=== PATIENT | male | born 1945 | race African-American/Black ===

== ENCOUNTER 2018-01-03 15:38 | Inpatient (IN) ==
[2018-01-03] MEDS ORDERED: FUROSEMIDE 100 MG/10 ML VIAL IV STA (16:28)
[2018-01-03] MEDS ORDERED: ASPIRIN 325 MG TABLET PO STA (16:28)
[2018-01-03] MEDS ORDERED: ONDANSETRON 4 MG/2 ML VIAL IV STA (16:28)
[2018-01-03] MEDS ORDERED: MORPHINE 4 MG/1 ML VIAL IV STA (16:28)
[2018-01-03] MEDS ORDERED: ALBUTEROL NEB SOLN 5 MG/ML 20 ML/BOTTLE RESP TX SCH (16:30)
[2018-01-03 16:50] LABS: Basophils % 0.5 % (0.0-0.8); Immature Granulocytes % 0.2 %; Immature Granulocytes Absolute 0.01 #; Lymphocytes # 1.4 10*3/uL (1.4-4.0); Lymphocytes % 34.3 % (21.2-54.2); Mean Corpuscular HGB Conc 31.4 GM/DL (32-36); Mean Corpuscular Hemoglobin 28 PG (27-34); Mean Corpuscular Volume 90.4 FL (87-102); Mean Platelet Volume 11.9 FL (9.6-12.0); Monocytes # 0.4 10*3/uL (0.11-0.8); Monocytes % 8.3 % (1.7-12.7); Neutrophils # 2.3 10*3/uL (1.4-7.4); Neutrophils % 55.7 % (38.7-73.9); Platelet Count 154 T/CUMM (130-400); Red Blood Count 3.87 MC/CUMM (3.8-5.5); Red Cell Distribution Width 15.9 % (9.3-17.3); White Blood Count 4.2 T/CUMM (4-12)
[2018-01-03 16:58] LABS: INR 1.3; PT Patient Result 13.2 SECS
[2018-01-03 17:14] LABS: Albumin 3.7 G/DL (3.4-5.0); Bilirubin,Total 0.9 MG/DL (0.2-1.0); Calcium 8.4 MG/DL (8.5-10.1); Osmolality,Calculated 283.1 MOS/KG (273-304); Potassium 3.6 MMOL/L (3.5-5.1); Total Protein 7.6 G/DL (6.4-8.3)
[2018-01-03 17:29] LABS: Troponin I Only 5.57 NG/ML (0.00-0.045)
[2018-01-03] MEDS ORDERED: ENOXAPARIN 100 MG/ML SYRINGE SUBCUT STA (17:33)
[2018-01-03 19:12] LABS: CKMB % 12.6 %
[2018-01-03 19:15] LABS: Troponin I Only 5.57 NG/ML (0.00-0.045)
[2018-01-03] MEDS ORDERED: ONDANSETRON 4 MG/2 ML VIAL IV PRN (19:57)
[2018-01-03] MEDS ORDERED: MORPHINE 4 MG/1 ML VIAL IV PRN (19:57)
[2018-01-03] MEDS ORDERED: SODIUM CHLORIDE 0.9% 1,000 ML IV SCH (19:57)
[2018-01-03] MEDS ORDERED: MAGNESIUM SULF RIDER 4 GM in PREMIX 1 EACH IV PRN (19:57)
[2018-01-03] MEDS ORDERED: ALBUTEROL/IPRATROPIUM 3 ML NEB RESP TX PRN (19:57)
[2018-01-03] MEDS ORDERED: MAGNESIUM SULF RIDER 2 GM in PREMIX 1 EACH IV PRN (19:57)
[2018-01-03 20:44] LABS: CKMB % 12.7 %
[2018-01-03 20:45] LABS: Troponin I Only 7.37 NG/ML (0.00-0.045)
[2018-01-03] MEDS: NITROGLYCERIN 2% OINT 1 INCH/GM PACK TOP SCH (21:05)
[2018-01-04] MEDS: NITROGLYCERIN 2% OINT 1 INCH/GM PACK TOP SCH ×5 (02:48→20:13)
[2018-01-04 04:19] LABS: Basophils % 0.7 % (0.0-0.8); Eosinophils # 0.1 10*3/uL (0.0-0.87); Eosinophils % 1.4 % (0.00-10.9); Hematocrit 35.2 VOL% (42.0-52.0); Immature Granulocytes % 0.2 %; Immature Granulocytes Absolute 0.01 #; Lymphocytes # 1.8 10*3/uL (1.4-4.0); Mean Corpuscular HGB Conc 31.3 GM/DL (32-36); Mean Corpuscular Hemoglobin 29 PG (27-34); Mean Corpuscular Volume 91.2 FL (87-102); Mean Platelet Volume 12.6 FL (9.6-12.0); Monocytes # 0.3 10*3/uL (0.11-0.8); Monocytes % 7.7 % (1.7-12.7); Neutrophils # 2.2 10*3/uL (1.4-7.4); Platelet Count 144 T/CUMM (130-400); Red Blood Count 3.86 MC/CUMM (3.8-5.5); Red Cell Distribution Width 15.8 % (9.3-17.3); White Blood Count 4.4 T/CUMM (4-12)
[2018-01-04 05:01] LABS: Albumin 3.5 G/DL (3.4-5.0); Bilirubin,Total 0.8 MG/DL (0.2-1.0); Calcium 8.1 MG/DL (8.5-10.1); Potassium 3.4 MMOL/L (3.5-5.1); Risk Ratio 6.7; Total Protein 7.3 G/DL (6.4-8.3); VLDL CHOLESTEROL 17.4 MG/DL
[2018-01-04 05:03] LABS: CKMB % 11.7 %
[2018-01-04 05:07] LABS: Troponin I Only 10.5 NG/ML (0.00-0.045)
[2018-01-04] MEDS: POTASSIUM CHLORIDE 20 MEQ TABLET PO PRN ×2 (05:12→06:58)
[2018-01-04] MEDS: ENOXAPARIN 80 MG/0.8 ML SYRINGE SUBCUT SCH ×2 (06:58→17:29)
[2018-01-04] MEDS ORDERED: FUROSEMIDE 20 MG/2 ML VIAL IV SCH (08:00)
[2018-01-04] MEDS ORDERED: FUROSEMIDE 40 MG TABLET PO SCH (09:00)
[2018-01-04] MEDS: POTASSIUM CHLORIDE 20 MEQ TABLET PO SCH (09:43)
[2018-01-04] MEDS: LOSARTAN 25 MG TABLET PO SCH (09:44)
[2018-01-04] MEDS: ALLOPURINOL 100 MG TABLET PO SCH (09:44)
[2018-01-04] MEDS: ASPIRIN EC 81 MG TABLET PO SCH (09:44)
[2018-01-04] MEDS: METOPROLOL TARTRATE 25 MG TABLET PO SCH ×2 (09:44→20:07)
[2018-01-04] MEDS: COLCHICINE 0.6 MG TABLET PO SCH (09:44)
[2018-01-04] MEDS: PANTOPRAZOLE 40 MG TABLET PO SCH (09:44)
[2018-01-04] MEDS ORDERED: diphenhydrAMINE CAP 25 MG CAPSULE PO ONE (10:37)
[2018-01-04] MEDS ORDERED: DIAZEPAM 5 MG TABLET PO ONE (10:37)
[2018-01-04 12:41] LABS: CKMB % 9.6 %
[2018-01-04 12:42] LABS: Troponin I Only 10.8 NG/ML (0.00-0.045)
[2018-01-04] MEDS: FUROSEMIDE 20 MG/2 ML VIAL IV SCH (15:24)
[2018-01-04] MEDS: ATORVASTATIN 80 MG TABLET PO SCH (20:07)
[2018-01-05] MEDS: NITROGLYCERIN 2% OINT 1 INCH/GM PACK TOP SCH ×4 (02:00→21:30)
[2018-01-05 04:16] LABS: Eosinophils # 0.1 10*3/uL (0.0-0.87); Eosinophils % 2.5 % (0.00-10.9); Hematocrit 36.8 VOL% (42.0-52.0); Immature Granulocytes % 0.2 %; Immature Granulocytes Absolute 0.01 #; Lymphocytes # 1.7 10*3/uL (1.4-4.0); Mean Corpuscular HGB Conc 32.6 GM/DL (32-36); Mean Corpuscular Hemoglobin 29 PG (27-34); Mean Corpuscular Volume 87.6 FL (87-102); Monocytes # 0.4 10*3/uL (0.11-0.8); Monocytes % 9.2 % (1.7-12.7); Neutrophils # 1.9 10*3/uL (1.4-7.4); Neutrophils % 46.1 % (38.7-73.9); Platelet Count 171 T/CUMM (130-400); Red Cell Distribution Width 15.9 % (9.3-17.3)
[2018-01-05 04:52] LABS: Calcium 8.9 MG/DL (8.5-10.1); Osmolality,Calculated 285.3 MOS/KG (273-304); Potassium 3.8 MMOL/L (3.5-5.1)
[2018-01-05] MEDS ORDERED: DIAZEPAM 5 MG TABLET PO ONE (06:00)
[2018-01-05] MEDS ORDERED: diphenhydrAMINE CAP 25 MG CAPSULE PO ONE (06:00)
[2018-01-05] MEDS ORDERED: SODIUM CHLORIDE 0.9% 1,000 ML IV SCH (06:00)
[2018-01-05] MEDS: ENOXAPARIN 80 MG/0.8 ML SYRINGE SUBCUT SCH ×2 (06:32→18:41)
[2018-01-05] MEDS: FUROSEMIDE 20 MG/2 ML VIAL IV SCH ×2 (09:19→16:18)
[2018-01-05] MEDS: COLCHICINE 0.6 MG TABLET PO SCH (09:19)
[2018-01-05] MEDS: POTASSIUM CHLORIDE 20 MEQ TABLET PO SCH (09:19)
[2018-01-05] MEDS: ALLOPURINOL 100 MG TABLET PO SCH (09:20)
[2018-01-05] MEDS ORDERED: HEPARIN/NACL 0.9% 2 UNITS/ML 1,000 ML IV ONE (10:26)
[2018-01-05] MEDS: ASPIRIN EC 81 MG TABLET PO SCH (11:04)
[2018-01-05] MEDS: PANTOPRAZOLE 40 MG TABLET PO SCH (11:04)
[2018-01-05] MEDS: METOPROLOL TARTRATE 25 MG TABLET PO SCH ×2 (11:04→21:28)
[2018-01-05] MEDS: LOSARTAN 25 MG TABLET PO SCH (11:04)
[2018-01-05] MEDS ORDERED: fentaNYL 100 MCG/2 ML VIAL ONE (11:24)
[2018-01-05] MEDS ORDERED: MIDAZOLAM 2 MG/2 ML VIAL ONE (11:24)
[2018-01-05] MEDS: ATORVASTATIN 80 MG TABLET PO SCH (21:28)
[2018-01-06] MEDS: NITROGLYCERIN 2% OINT 1 INCH/GM PACK TOP SCH ×3 (02:28→16:26)
[2018-01-06 05:59] LABS: Basophils % 0.8 % (0.0-0.8); Eosinophils # 0.1 10*3/uL (0.0-0.87); Eosinophils % 1.6 % (0.00-10.9); Hematocrit 36.4 VOL% (42.0-52.0); Hemoglobin 11.3 GM/DL (14.0-18.0); Immature Granulocytes % 0.3 %; Immature Granulocytes Absolute 0.01 #; Lymphocytes # 1.5 10*3/uL (1.4-4.0); Lymphocytes % 41.3 % (21.2-54.2); Mean Corpuscular Hemoglobin 29 PG (27-34); Mean Corpuscular Volume 92.2 FL (87-102); Mean Platelet Volume 12.5 FL (9.6-12.0); Monocytes # 0.3 10*3/uL (0.11-0.8); Monocytes % 9.1 % (1.7-12.7); Neutrophils # 1.8 10*3/uL (1.4-7.4); Neutrophils % 46.9 % (38.7-73.9); Platelet Count 154 T/CUMM (130-400); Red Blood Count 3.95 MC/CUMM (3.8-5.5); Red Cell Distribution Width 15.7 % (9.3-17.3); White Blood Count 3.7 T/CUMM (4-12)
[2018-01-06 06:14] LABS: Calcium 8.6 MG/DL (8.5-10.1); Osmolality,Calculated 286.1 MOS/KG (273-304); Potassium 3.8 MMOL/L (3.5-5.1)
[2018-01-06] MEDS: ENOXAPARIN 80 MG/0.8 ML SYRINGE SUBCUT SCH (06:40)
[2018-01-06] MEDS: PANTOPRAZOLE 40 MG TABLET PO SCH (08:36)
[2018-01-06] MEDS: COLCHICINE 0.6 MG TABLET PO SCH (08:36)
[2018-01-06] MEDS: LOSARTAN 25 MG TABLET PO SCH (08:37)
[2018-01-06] MEDS: FUROSEMIDE 40 MG TABLET PO SCH ×2 (08:37→16:26)
[2018-01-06] MEDS: POTASSIUM CHLORIDE 20 MEQ TABLET PO SCH (08:37)
[2018-01-06] MEDS: ALLOPURINOL 100 MG TABLET PO SCH (08:37)
[2018-01-06] MEDS: ASPIRIN EC 81 MG TABLET PO SCH (08:37)
[2018-01-06] MEDS: METOPROLOL TARTRATE 25 MG TABLET PO SCH (08:37)
[2018-01-06 15:44] VITALS: BP 127/73
== END 2018-01-06 16:28 | disposition home or self-care (01) | DRG 280 ==
LOC: N.ED 15:38 → N.EDINP 17:37 → N.TELES 18:54
PROVIDERS: ADMIT Internal Medicine Interventional Cardiology; ATTEND Internal Medicine Interventional Cardiology

== ENCOUNTER 2018-03-27 16:03 | Observation (INO) ==
[2018-03-27 16:43] LABS: Basophils % 0.5 % (0.0-0.8); Eosinophils # 0.1 10*3/uL (0.0-0.87); Eosinophils % 1.2 % (0.00-10.9); Hematocrit 37.9 VOL% (42.0-52.0); Hemoglobin 12.3 GM/DL (14.0-18.0); Immature Granulocytes % 0.2 %; Immature Granulocytes Absolute 0.01 #; Lymphocytes # 1.6 10*3/uL (1.4-4.0); Lymphocytes % 38.6 % (21.2-54.2); Mean Corpuscular HGB Conc 32.5 GM/DL (32-36); Mean Corpuscular Hemoglobin 29 PG (27-34); Mean Platelet Volume 12.5 FL (9.6-12.0); Monocytes # 0.4 10*3/uL (0.11-0.8); Monocytes % 8.8 % (1.7-12.7); Neutrophils # 2.1 10*3/uL (1.4-7.4); Neutrophils % 50.7 % (38.7-73.9); Platelet Count 153 T/CUMM (130-400); Red Blood Count 4.21 MC/CUMM (3.8-5.5); Red Cell Distribution Width 16.8 % (9.3-17.3); White Blood Count 4.1 T/CUMM (4-12)
[2018-03-27 16:52] LABS: INR 1.2; PT Patient Result 12.9 SECS; Partial Thromboplastin Time 25.9 SECS (0-40)
[2018-03-27 17:05] LABS: Albumin 3.7 G/DL (3.4-5.0); Bilirubin,Total 1.2 MG/DL (0.2-1.0); Calcium 8.6 MG/DL (8.5-10.1); Osmolality,Calculated 286.8 MOS/KG (273-304); Potassium 3.8 MMOL/L (3.5-5.1); Total Protein 7.4 G/DL (6.4-8.3)
[2018-03-27] MEDS ORDERED: ENOXAPARIN 100 MG/ML SYRINGE SUBCUT STA (19:38)
[2018-03-27] MEDS ORDERED: ONDANSETRON 4 MG/2 ML VIAL IV PRN (23:06)
[2018-03-27] MEDS ORDERED: MAGNESIUM SULF RIDER 4 GM in PREMIX 1 EACH IV PRN (23:06)
[2018-03-27] MEDS ORDERED: MORPHINE 4 MG/1 ML VIAL IV PRN (23:06)
[2018-03-27] MEDS ORDERED: ALBUTEROL/IPRATROPIUM 3 ML NEB RESP TX PRN (23:06)
[2018-03-27] MEDS ORDERED: MAGNESIUM SULF RIDER 2 GM in PREMIX 1 EACH IV PRN (23:06)
[2018-03-27] MEDS ORDERED: SODIUM CHLORIDE 0.9% 1,000 ML IV SCH (23:06)
[2018-03-27] MEDS: CARVEDILOL 12.5 MG TABLET PO SCH (23:29)
[2018-03-27] MEDS: METOPROLOL TARTRATE 25 MG TABLET PO SCH (23:29)
[2018-03-27] MEDS: ATORVASTATIN 80 MG TABLET PO SCH (23:29)
[2018-03-28 00:17] LABS: Troponin I 0.052 NG/ML (0.00-0.045)
[2018-03-28 04:46] LABS: Basophils % 0.7 % (0.0-0.8); Eosinophils # 0.1 10*3/uL (0.0-0.87); Eosinophils % 1.6 % (0.00-10.9); Hematocrit 35.2 VOL% (42.0-52.0); Hemoglobin 11.4 GM/DL (14.0-18.0); Immature Granulocytes % 0.2 %; Immature Granulocytes Absolute 0.01 #; Lymphocytes # 1.9 10*3/uL (1.4-4.0); Lymphocytes % 44.9 % (21.2-54.2); Mean Corpuscular HGB Conc 32.4 GM/DL (32-36); Mean Corpuscular Hemoglobin 30 PG (27-34); Mean Corpuscular Volume 91.2 FL (87-102); Monocytes # 0.4 10*3/uL (0.11-0.8); Monocytes % 9.3 % (1.7-12.7); Neutrophils # 1.9 10*3/uL (1.4-7.4); Neutrophils % 43.3 % (38.7-73.9); Platelet Count 121 T/CUMM (130-400); Red Blood Count 3.86 MC/CUMM (3.8-5.5); Red Cell Distribution Width 16.7 % (9.3-17.3); White Blood Count 4.3 T/CUMM (4-12)
[2018-03-28 05:28] LABS: Albumin 3.2 G/DL (3.4-5.0); Bilirubin,Total 1.2 MG/DL (0.2-1.0); Calcium 8.4 MG/DL (8.5-10.1); Potassium 3.5 MMOL/L (3.5-5.1); Risk Ratio 7.57; Thyroid Stimulating Hormone 1.86 uIU/ml (0.358-3.74); VLDL CHOLESTEROL 18.6 MG/DL
[2018-03-28] MEDS ORDERED: FUROSEMIDE 40 MG TABLET PO SCH (08:00)
[2018-03-28 08:07] LABS: Troponin I 0.049 NG/ML (0.00-0.045)
[2018-03-28] MEDS ORDERED: CLOPIDOGREL 75 MG TABLET PO SCH (09:00)
[2018-03-28] MEDS ORDERED: LOSARTAN 25 MG TABLET PO SCH (09:00)
[2018-03-28] MEDS: FUROSEMIDE 40 MG/4 ML VIAL IV SCH ×2 (09:54→16:20)
[2018-03-28] MEDS: PANTOPRAZOLE 40 MG TABLET PO SCH (09:58)
[2018-03-28] MEDS: CARVEDILOL 12.5 MG TABLET PO SCH ×2 (09:58→20:18)
[2018-03-28] MEDS: METOPROLOL TARTRATE 25 MG TABLET PO SCH ×2 (09:58→20:18)
[2018-03-28] MEDS: COLCHICINE 0.6 MG TABLET PO SCH (09:58)
[2018-03-28] MEDS: LOSARTAN 25 MG TABLET PO SCH (10:01)
[2018-03-28] MEDS: POTASSIUM CHLORIDE 20 MEQ TABLET PO SCH (10:02)
[2018-03-28] MEDS: ALLOPURINOL 300 MG TABLET PO SCH (10:02)
[2018-03-28] MEDS: ENOXAPARIN 40 MG/0.4 ML SYRINGE SUBCUT SCH (10:02)
[2018-03-28] MEDS: CLOPIDOGREL 75 MG TABLET PO SCH (10:02)
[2018-03-28] MEDS: ASPIRIN EC 81 MG TABLET PO SCH (10:02)
[2018-03-28 15:35] LABS: Troponin I 0.044 NG/ML (0.00-0.045)
[2018-03-28] MEDS: ATORVASTATIN 80 MG TABLET PO SCH (20:19)
[2018-03-29 07:33] LABS: Basophils % 0.6 % (0.0-0.8); Eosinophils # 0.1 10*3/uL (0.0-0.87); Eosinophils % 1.7 % (0.00-10.9); Hemoglobin 11.9 GM/DL (14.0-18.0); Immature Granulocytes % 0.3 %; Immature Granulocytes Absolute 0.01 #; Lymphocytes # 1.1 10*3/uL (1.4-4.0); Lymphocytes % 30.6 % (21.2-54.2); Mean Corpuscular HGB Conc 32.2 GM/DL (32-36); Mean Corpuscular Hemoglobin 29 PG (27-34); Mean Corpuscular Volume 89.8 FL (87-102); Mean Platelet Volume 11.8 FL (9.6-12.0); Monocytes # 0.3 10*3/uL (0.11-0.8); Monocytes % 9.3 % (1.7-12.7); Neutrophils # 2.1 10*3/uL (1.4-7.4); Neutrophils % 57.5 % (38.7-73.9); Platelet Count 120 T/CUMM (130-400); Red Blood Count 4.12 MC/CUMM (3.8-5.5); Red Cell Distribution Width 16.6 % (9.3-17.3); White Blood Count 3.6 T/CUMM (4-12)
[2018-03-29 07:57] LABS: Calcium 8.4 MG/DL (8.5-10.1); Osmolality,Calculated 283.3 MOS/KG (273-304); Potassium 3.3 MMOL/L (3.5-5.1)
[2018-03-29] MEDS: CARVEDILOL 12.5 MG TABLET PO SCH ×2 (08:40→21:43)
[2018-03-29] MEDS: PANTOPRAZOLE 40 MG TABLET PO SCH (08:40)
[2018-03-29] MEDS: ASPIRIN EC 81 MG TABLET PO SCH (08:40)
[2018-03-29] MEDS: ENOXAPARIN 40 MG/0.4 ML SYRINGE SUBCUT SCH (08:40)
[2018-03-29] MEDS: POTASSIUM CHLORIDE 20 MEQ TABLET PO SCH (08:40)
[2018-03-29] MEDS: METOPROLOL TARTRATE 25 MG TABLET PO SCH ×2 (08:40→21:43)
[2018-03-29] MEDS: LOSARTAN 25 MG TABLET PO SCH (08:40)
[2018-03-29] MEDS: COLCHICINE 0.6 MG TABLET PO SCH (08:40)
[2018-03-29] MEDS: ALLOPURINOL 300 MG TABLET PO SCH (08:40)
[2018-03-29] MEDS: CLOPIDOGREL 75 MG TABLET PO SCH (08:40)
[2018-03-29] MEDS: FUROSEMIDE 40 MG/4 ML VIAL IV SCH ×2 (08:42→16:46)
[2018-03-29] MEDS: POTASSIUM CHLORIDE 20 MEQ TABLET PO PRN ×3 (16:46→23:50)
[2018-03-29] MEDS: ATORVASTATIN 80 MG TABLET PO SCH (21:43)
[2018-03-30 04:07] LABS: Basophils % 0.6 % (0.0-0.8); Eosinophils # 0.1 10*3/uL (0.0-0.87); Eosinophils % 2.6 % (0.00-10.9); Hematocrit 39.3 VOL% (42.0-52.0); Lymphocytes % 29.9 % (21.2-54.2); Mean Corpuscular HGB Conc 33.1 GM/DL (32-36); Mean Corpuscular Hemoglobin 29 PG (27-34); Mean Corpuscular Volume 87.5 FL (87-102); Mean Platelet Volume 11.8 FL (9.6-12.0); Monocytes # 0.3 10*3/uL (0.11-0.8); Monocytes % 9.3 % (1.7-12.7); Neutrophils % 57.6 % (38.7-73.9); Platelet Count 140 T/CUMM (130-400); Red Blood Count 4.49 MC/CUMM (3.8-5.5); Red Cell Distribution Width 16.6 % (9.3-17.3); White Blood Count 3.4 T/CUMM (4-12)
[2018-03-30 04:21] LABS: Calcium 8.7 MG/DL (8.5-10.1); Osmolality,Calculated 285.3 MOS/KG (273-304)
[2018-03-30] MEDS: PANTOPRAZOLE 40 MG TABLET PO SCH (08:45)
[2018-03-30] MEDS: COLCHICINE 0.6 MG TABLET PO SCH (08:45)
[2018-03-30] MEDS: METOPROLOL TARTRATE 25 MG TABLET PO SCH (08:45)
[2018-03-30] MEDS: ALLOPURINOL 300 MG TABLET PO SCH (08:46)
[2018-03-30] MEDS: ENOXAPARIN 40 MG/0.4 ML SYRINGE SUBCUT SCH (08:47)
[2018-03-30] MEDS: ASPIRIN EC 81 MG TABLET PO SCH (08:47)
[2018-03-30] MEDS: CLOPIDOGREL 75 MG TABLET PO SCH (08:47)
[2018-03-30] MEDS: CARVEDILOL 12.5 MG TABLET PO SCH (08:47)
[2018-03-30] MEDS: POTASSIUM CHLORIDE 20 MEQ TABLET PO SCH (08:47)
[2018-03-30] MEDS: LOSARTAN 25 MG TABLET PO SCH (08:47)
[2018-03-30] MEDS: FUROSEMIDE 40 MG/4 ML VIAL IV SCH ×2 (08:48→17:22)
[2018-03-30 16:41] VITALS: BP 108/60
== END 2018-03-30 19:36 | disposition home or self-care (01) ==
LOC: N.EDINP 16:03 → N.ED 16:03 → N.ICU 22:02 → N.TELEN 03-29 14:06
PROVIDERS: ADMIT Internal Medicine Cardiovascular Disease; ATTEND Internal Medicine Cardiovascular Disease

== ENCOUNTER 2020-02-04 13:54 | Observation (INO) ==
[2020-02-04 16:37] LABS: Basophils % 0.9 % (0.0-0.8); Eosinophils # 0.1 10*3/uL (0.0-0.87); Eosinophils % 1.3 % (0.00-10.9); Hemoglobin 12.4 GM/DL (14.0-18.0); Immature Granulocytes % 0.2 %; Immature Granulocytes Absolute 0.01 #; Lymphocytes # 1.8 10*3/uL (1.4-4.0); Lymphocytes % 39.2 % (21.2-54.2); Mean Corpuscular Volume 95.7 FL (87-102); Mean Platelet Volume 12.2 FL (9.6-12.0); Monocytes % 7.2 % (1.7-12.7); Neutrophils % 51.2 % (38.7-73.9); Platelet Count 170 T/CUMM (130-400); Red Blood Count 4.18 MC/CUMM (3.8-5.5); Red Cell Distribution Width 15.2 % (9.3-17.3); White Blood Count 4.6 T/CUMM (4-12)
[2020-02-04 16:58] LABS: Bilirubin,Total 1.2 MG/DL (0.2-1.0); Calcium 8.8 MG/DL (8.5-10.1); Osmolality,Calculated 281.3 MOS/KG (273-304); Total Protein 7.9 G/DL (6.4-8.3)
[2020-02-04] MEDS ORDERED: ACETAMINOPHEN 325 MG TABLET PO PRN (18:12)
[2020-02-04] MEDS ORDERED: GLUCAGON 1 MG VIAL IM PRN (18:12)
[2020-02-04] MEDS ORDERED: ONDANSETRON 4 MG/2 ML VIAL IV PRN (18:12)
[2020-02-04] MEDS ORDERED: DEXTROSE 50% 25 GM/50 ML VIAL IV PRN (18:12)
[2020-02-04] MEDS ORDERED: FUROSEMIDE 40 MG/4 ML VIAL IV STA (18:29)
[2020-02-04] MEDS ORDERED: ENOXAPARIN 40 MG/0.4 ML SYRINGE SUBCUT SCH (21:00)
[2020-02-04] MEDS ORDERED: ALBUTEROL/IPRATROPIUM 3 ML NEB RESP TX PRN (21:17)
[2020-02-04] MEDS ORDERED: ATORVASTATIN 80 MG TABLET PO SCH (22:00)
[2020-02-04] MEDS: COLCHICINE 0.6 MG CAPSULE PO SCH (23:11)
[2020-02-05 04:11] LABS: Bacteria,Urine Occasional /HPF (Few); Bilirubin,Urine Negative (Negative); Blood, Urine Negative (Negative); Glucose,Urine (UA) Negative (Negative); Hyaline Casts,Urine 3 /LPF (0-3); Ketones,Urine Negative (Negative); Mucus,Urine Occasional /LPF (Occasional); Nitrite,Urine Negative (Negative); Protein,Urine Negative; RBC,Urine 2 /HPF (0-4); Urine Appearance CLEAR (Clear); Urine Color Yellow (Yellow); Urine Specific Gravity 1.008 (1.001-1.035); WBC,Urine <1 /HPF (0-6)
[2020-02-05 05:35] LABS: Basophils % 0.3 % (0.0-0.8); Eosinophils # 0.1 10*3/uL (0.0-0.87); Eosinophils % 2.1 % (0.00-10.9); Hematocrit 36.9 VOL% (42.0-52.0); Hemoglobin 11.7 GM/DL (14.0-18.0); Immature Granulocytes % 0.3 %; Immature Granulocytes Absolute 0.01 #; Lymphocytes # 1.8 10*3/uL (1.4-4.0); Lymphocytes % 46.3 % (21.2-54.2); Mean Corpuscular HGB Conc 31.7 GM/DL (32-36); Mean Corpuscular Volume 91.8 FL (87-102); Mean Platelet Volume 12.2 FL (9.6-12.0); Monocytes % 7.9 % (1.7-12.7); Neutrophils % 43.1 % (38.7-73.9); Platelet Count 146 T/CUMM (130-400); Red Blood Count 4.02 MC/CUMM (3.8-5.5); Red Cell Distribution Width 15.1 % (9.3-17.3); White Blood Count 3.8 T/CUMM (4-12)
[2020-02-05 06:07] LABS: Calcium 8.5 MG/DL (8.5-10.1); Osmolality,Calculated 283.3 MOS/KG (273-304)
[2020-02-05 06:14] LABS: Risk Ratio 6.17
[2020-02-05] MEDS ORDERED: FUROSEMIDE 40 MG/4 ML VIAL IV SCH (08:00)
[2020-02-05] MEDS: POTASSIUM CHLORIDE 20 MEQ TABLET PO PRN ×3 (08:33→12:42)
[2020-02-05] MEDS ORDERED: carvediloL 12.5 MG TABLET PO SCH (09:00)
[2020-02-05] MEDS ORDERED: PANTOPRAZOLE 40 MG TABLET PO SCH (09:00)
[2020-02-05] MEDS ORDERED: ASPIRIN EC 81 MG TABLET PO SCH (09:00)
[2020-02-05] MEDS ORDERED: predniSONE 20 MG TABLET PO SCH (09:00)
[2020-02-05] MEDS ORDERED: LOSARTAN 50 MG TABLET PO SCH (09:00)
[2020-02-05] MEDS: COLCHICINE 0.6 MG CAPSULE PO SCH (09:02)
[2020-02-05 14:32] VITALS: BP 133/71
== END 2020-02-05 15:05 | disposition home or self-care (01) ==
LOC: N.EDINP 13:54 → N.ED 13:54 → N.TELES 21:49
PROVIDERS: ADMIT Internal Medicine Geriatric Medicine; ATTEND Internal Medicine Geriatric Medicine

== ENCOUNTER 2020-03-29 18:50 | Observation (INO) ==
[2020-03-29 19:12] LABS: Basophils % 0.8 % (0.0-0.8); Eosinophils # 0.1 10*3/uL (0.0-0.87); Eosinophils % 1.8 % (0.00-10.9); Hematocrit 38.5 VOL% (42.0-52.0); Hemoglobin 12.4 GM/DL (14.0-18.0); Immature Granulocytes % 0.3 %; Immature Granulocytes Absolute 0.01 #; Lymphocytes # 1.9 10*3/uL (1.4-4.0); Lymphocytes % 48.3 % (21.2-54.2); Mean Corpuscular HGB Conc 32.2 GM/DL (32-36); Mean Corpuscular Volume 92.3 FL (87-102); Mean Platelet Volume 12.5 FL (9.6-12.0); Monocytes % 8.4 % (1.7-12.7); Neutrophils % 40.4 % (38.7-73.9); Platelet Count 128 T/CUMM (130-400); Red Blood Count 4.17 MC/CUMM (3.8-5.5); Red Cell Distribution Width 15.5 % (9.3-17.3); White Blood Count 3.9 T/CUMM (4-12)
[2020-03-29 19:34] LABS: Albumin 3.7 G/DL (3.4-5.0); Calcium 8.8 MG/DL (8.5-10.1); Osmolality,Calculated 283.3 MOS/KG (273-304); Total Protein 7.8 G/DL (6.4-8.3)
[2020-03-29 19:40] LABS: INR 1.3; PT Patient Result 13.3 SECS (9.8-11.9); Partial Thromboplastin Time 27.4 SECS (23.9-33.8)
[2020-03-29] MEDS ORDERED: FUROSEMIDE 40 MG/4 ML VIAL IV STA (22:27)
[2020-03-29] MEDS ORDERED: ASPIRIN 325 MG TABLET PO STA (22:27)
[2020-03-30] MEDS ORDERED: DOCUSATE SODIUM 100 MG CAPSULE PO PRN (01:21)
[2020-03-30] MEDS ORDERED: ALUMINUM/MAGNES/SIMETH MAX STR 30 ML UDCUP PO PRN (01:21)
[2020-03-30] MEDS ORDERED: ONDANSETRON 4 MG/2 ML VIAL IV PRN (01:21)
[2020-03-30] MEDS ORDERED: ACETAMINOPHEN 325 MG TABLET PO PRN (01:21)
[2020-03-30] MEDS: COLCHICINE 0.6 MG CAPSULE PO SCH ×3 (04:59→20:38)
[2020-03-30] MEDS: POTASSIUM CHLORIDE 20 MEQ TABLET PO PRN ×3 (05:00→20:39)
[2020-03-30 05:49] LABS: Basophils % 0.8 % (0.0-0.8); Eosinophils # 0.1 10*3/uL (0.0-0.87); Eosinophils % 1.6 % (0.00-10.9); Hematocrit 40.7 VOL% (42.0-52.0); Hemoglobin 12.6 GM/DL (14.0-18.0); Immature Granulocytes % 0.2 %; Immature Granulocytes Absolute 0.01 #; Lymphocytes # 2.2 10*3/uL (1.4-4.0); Lymphocytes % 42.5 % (21.2-54.2); Mean Corpuscular Volume 95.5 FL (87-102); Mean Platelet Volume 13.4 FL (9.6-12.0); Monocytes % 7.3 % (1.7-12.7); Neutrophils % 47.6 % (38.7-73.9); Platelet Count 151 T/CUMM (130-400); Red Blood Count 4.26 MC/CUMM (3.8-5.5); Red Cell Distribution Width 15.5 % (9.3-17.3); White Blood Count 5.1 T/CUMM (4-12)
[2020-03-30 06:09] LABS: Osmolality,Calculated 285.3 MOS/KG (273-304)
[2020-03-30] MEDS ORDERED: POTASSIUM CHLORIDE 20 MEQ TABLET PO ONE (06:46)
[2020-03-30 07:01] LABS: Anisocytosis 2+; Platelet Estimate Normal
[2020-03-30] MEDS ORDERED: LOSARTAN 50 MG TABLET PO SCH (09:00)
[2020-03-30] MEDS ORDERED: LOSARTAN 25 MG TABLET PO ONE (09:02)
[2020-03-30] MEDS: POTASSIUM CHLORIDE 20 MEQ TABLET PO SCH (09:23)
[2020-03-30] MEDS: SPIRONOLACTONE 25 MG TABLET PO SCH (09:23)
[2020-03-30] MEDS: FUROSEMIDE 40 MG/4 ML VIAL IV SCH ×2 (09:23→16:53)
[2020-03-30] MEDS: carvediloL 12.5 MG TABLET PO SCH ×2 (09:23→16:54)
[2020-03-30] MEDS: ASPIRIN EC 81 MG TABLET PO SCH (09:23)
[2020-03-30] MEDS: ENOXAPARIN 40 MG/0.4 ML SYRINGE SUBCUT SCH (09:24)
[2020-03-30] MEDS: EZETIMIBE 10 MG TABLET PO SCH (20:38)
[2020-03-30] MEDS: LOSARTAN 50 MG TABLET PO SCH (20:39)
[2020-03-30] MEDS: ATORVASTATIN 80 MG TABLET PO SCH (20:39)
[2020-03-31 05:48] LABS: Basophils % 0.8 % (0.0-0.8); Eosinophils # 0.1 10*3/uL (0.0-0.87); Eosinophils % 2.6 % (0.00-10.9); Hematocrit 38.8 VOL% (42.0-52.0); Hemoglobin 12.2 GM/DL (14.0-18.0); Lymphocytes # 1.9 10*3/uL (1.4-4.0); Lymphocytes % 49.6 % (21.2-54.2); Mean Corpuscular HGB Conc 31.4 GM/DL (32-36); Mean Corpuscular Volume 93.9 FL (87-102); Mean Platelet Volume 12.8 FL (9.6-12.0); Platelet Count 128 T/CUMM (130-400); Red Blood Count 4.13 MC/CUMM (3.8-5.5); Red Cell Distribution Width 15.4 % (9.3-17.3); White Blood Count 3.9 T/CUMM (4-12)
[2020-03-31 06:19] LABS: Band Neutrophils 3 % (0-10); Calcium 8.8 MG/DL (8.5-10.1); Eosinophils 1 % (0-10); Lymphocytes 60 % (20-55); Osmolality,Calculated 282.3 MOS/KG (273-304); Segmented Neutrophils 31 % (50-85); Total Cells Counted 100
[2020-03-31 06:20] LABS: Anisocytosis 2+; Macrocytosis Slight; Poikilocytosis Slight
[2020-03-31] MEDS: POTASSIUM CHLORIDE 20 MEQ TABLET PO PRN (07:56)
[2020-03-31] MEDS ORDERED: POTASSIUM CHLORIDE 20 MEQ TABLET PO ONE (08:11)
[2020-03-31] MEDS ORDERED: LOSARTAN 25 MG TABLET PO SCH (09:00)
[2020-03-31] MEDS: COLCHICINE 0.6 MG CAPSULE PO SCH ×2 (09:55→20:32)
[2020-03-31] MEDS: carvediloL 12.5 MG TABLET PO SCH ×2 (09:56→16:54)
[2020-03-31] MEDS: LOSARTAN 50 MG TABLET PO SCH ×2 (09:56→20:32)
[2020-03-31] MEDS: ASPIRIN EC 81 MG TABLET PO SCH (09:56)
[2020-03-31] MEDS: POTASSIUM CHLORIDE 20 MEQ TABLET PO SCH (09:57)
[2020-03-31] MEDS: ENOXAPARIN 40 MG/0.4 ML SYRINGE SUBCUT SCH (09:57)
[2020-03-31] MEDS: SPIRONOLACTONE 25 MG TABLET PO SCH (09:57)
[2020-03-31] MEDS: FUROSEMIDE 40 MG/4 ML VIAL IV SCH ×2 (09:57→16:54)
[2020-03-31] MEDS: ATORVASTATIN 80 MG TABLET PO SCH (20:32)
[2020-03-31] MEDS: EZETIMIBE 10 MG TABLET PO SCH (20:32)
[2020-04-01 05:56] LABS: Basophils % 0.6 % (0.0-0.8); Eosinophils # 0.1 10*3/uL (0.0-0.87); Eosinophils % 1.5 % (0.00-10.9); Hematocrit 42.7 VOL% (42.0-52.0); Hemoglobin 13.6 GM/DL (14.0-18.0); Immature Granulocytes % 0.4 %; Immature Granulocytes Absolute 0.02 #; Lymphocytes # 0.9 10*3/uL (1.4-4.0); Lymphocytes % 16.3 % (21.2-54.2); Mean Corpuscular HGB Conc 31.9 GM/DL (32-36); Mean Corpuscular Volume 93.6 FL (87-102); Mean Platelet Volume 12.9 FL (9.6-12.0); Monocytes % 8.8 % (1.7-12.7); Neutrophils % 72.4 % (38.7-73.9); Platelet Count 134 T/CUMM (130-400); Red Blood Count 4.56 MC/CUMM (3.8-5.5); Red Cell Distribution Width 15.7 % (9.3-17.3); White Blood Count 5.3 T/CUMM (4-12)
[2020-04-01 06:20] LABS: Calcium 9.3 MG/DL (8.5-10.1)
[2020-04-01] MEDS: ENOXAPARIN 40 MG/0.4 ML SYRINGE SUBCUT SCH (09:39)
[2020-04-01] MEDS: carvediloL 12.5 MG TABLET PO SCH ×2 (09:40→18:18)
[2020-04-01] MEDS: COLCHICINE 0.6 MG CAPSULE PO SCH ×2 (09:40→22:28)
[2020-04-01] MEDS: ASPIRIN EC 81 MG TABLET PO SCH (09:40)
[2020-04-01] MEDS: FUROSEMIDE 40 MG/4 ML VIAL IV SCH ×2 (09:40→17:51)
[2020-04-01] MEDS: MULTIVITAMIN (CENTRUM) TABLET PO SCH (09:40)
[2020-04-01] MEDS: SPIRONOLACTONE 25 MG TABLET PO SCH (09:42)
[2020-04-01] MEDS: POTASSIUM CHLORIDE 20 MEQ TABLET PO SCH (09:42)
[2020-04-01] MEDS: LOSARTAN 50 MG TABLET PO SCH ×2 (09:42→22:29)
[2020-04-01] MEDS: ATORVASTATIN 80 MG TABLET PO SCH (22:28)
[2020-04-01] MEDS: EZETIMIBE 10 MG TABLET PO SCH (22:29)
[2020-04-02 05:13] LABS: Basophils % 1.1 % (0.0-0.8); Eosinophils # 0.1 10*3/uL (0.0-0.87); Hematocrit 39.9 VOL% (42.0-52.0); Hemoglobin 12.7 GM/DL (14.0-18.0); Lymphocytes % 54.8 % (21.2-54.2); Mean Corpuscular HGB Conc 31.8 GM/DL (32-36); Mean Corpuscular Volume 92.4 FL (87-102); Mean Platelet Volume 12.7 FL (9.6-12.0); Monocytes % 6.8 % (1.7-12.7); Neutrophils % 34.3 % (38.7-73.9); Platelet Count 141 T/CUMM (130-400); Red Blood Count 4.32 MC/CUMM (3.8-5.5); Red Cell Distribution Width 15.5 % (9.3-17.3); White Blood Count 3.7 T/CUMM (4-12)
[2020-04-02 05:39] LABS: Eosinophils 2 % (0-10); Hypochromasia 1+; Lymphocytes 59 % (20-55); Microcytosis 1+; Ovalocytes Slight; Platelet Estimate Adequate; Segmented Neutrophils 33 % (50-85); Total Cells Counted 100
[2020-04-02 05:40] LABS: Atypical Lymphocytes Few
[2020-04-02 05:51] LABS: Calcium 8.6 MG/DL (8.5-10.1); Osmolality,Calculated 278.8 MOS/KG (273-304)
[2020-04-02] MEDS: ENOXAPARIN 40 MG/0.4 ML SYRINGE SUBCUT SCH (09:56)
[2020-04-02] MEDS: MULTIVITAMIN (CENTRUM) TABLET PO SCH (09:57)
[2020-04-02] MEDS: ASPIRIN EC 81 MG TABLET PO SCH (09:57)
[2020-04-02] MEDS: POTASSIUM CHLORIDE 20 MEQ TABLET PO SCH (09:57)
[2020-04-02] MEDS: carvediloL 12.5 MG TABLET PO SCH ×2 (09:57→19:18)
[2020-04-02] MEDS: SPIRONOLACTONE 25 MG TABLET PO SCH (09:57)
[2020-04-02] MEDS: LOSARTAN 50 MG TABLET PO SCH ×2 (09:57→20:34)
[2020-04-02] MEDS: COLCHICINE 0.6 MG CAPSULE PO SCH ×2 (09:57→20:34)
[2020-04-02] MEDS: FUROSEMIDE 40 MG TABLET PO SCH (15:36)
[2020-04-02] MEDS: FUROSEMIDE 40 MG/4 ML VIAL IV SCH (15:38)
[2020-04-02] MEDS: EZETIMIBE 10 MG TABLET PO SCH (20:34)
[2020-04-02] MEDS: ATORVASTATIN 80 MG TABLET PO SCH (20:34)
[2020-04-03 07:23] LABS: Basophils % 0.8 % (0.0-0.8); Eosinophils # 0.1 10*3/uL (0.0-0.87); Eosinophils % 2.6 % (0.00-10.9); Hematocrit 40.8 VOL% (42.0-52.0); Hemoglobin 13.1 GM/DL (14.0-18.0); Immature Granulocytes % 0.3 %; Immature Granulocytes Absolute 0.01 #; Lymphocytes # 1.8 10*3/uL (1.4-4.0); Lymphocytes % 46.8 % (21.2-54.2); Mean Corpuscular HGB Conc 32.1 GM/DL (32-36); Mean Corpuscular Volume 93.2 FL (87-102); Mean Platelet Volume 12.5 FL (9.6-12.0); Monocytes % 7.3 % (1.7-12.7); Neutrophils % 42.2 % (38.7-73.9); Platelet Count 138 T/CUMM (130-400); Red Blood Count 4.38 MC/CUMM (3.8-5.5); Red Cell Distribution Width 15.4 % (9.3-17.3); White Blood Count 3.9 T/CUMM (4-12)
[2020-04-03 07:48] LABS: Calcium 9.1 MG/DL (8.5-10.1); Osmolality,Calculated 279.7 MOS/KG (273-304)
[2020-04-03] MEDS: COLCHICINE 0.6 MG CAPSULE PO SCH (09:23)
[2020-04-03] MEDS: ASPIRIN EC 81 MG TABLET PO SCH (09:23)
[2020-04-03] MEDS: FUROSEMIDE 40 MG TABLET PO SCH (09:23)
[2020-04-03] MEDS: LOSARTAN 50 MG TABLET PO SCH (09:23)
[2020-04-03] MEDS: MULTIVITAMIN (CENTRUM) TABLET PO SCH (09:23)
[2020-04-03] MEDS: carvediloL 12.5 MG TABLET PO SCH (09:24)
[2020-04-03] MEDS: POTASSIUM CHLORIDE 20 MEQ TABLET PO SCH (09:24)
[2020-04-03] MEDS: SPIRONOLACTONE 25 MG TABLET PO SCH (09:24)
[2020-04-03] MEDS: ENOXAPARIN 40 MG/0.4 ML SYRINGE SUBCUT SCH (09:24)
[2020-04-03 12:09] VITALS: BP 114/55
== END 2020-04-03 13:30 | disposition home or self-care (01) ==
LOC: N.EDINP 18:50 → N.ED 18:50 → SUATTDRO 03-30 00:55 → N.TELES 03-30 03:33
PROVIDERS: ADMIT Internal Medicine; ATTEND Internal Medicine

== ENCOUNTER 2020-09-24 21:38 | Observation (INO) ==
[2020-09-24] MEDS ORDERED: FUROSEMIDE 100 MG/10 ML VIAL IV STA (23:01)
[2020-09-24 23:28] LABS: Basophils % 0.6 % (0.0-0.8); Eosinophils % 1.1 % (0.00-10.9); Hematocrit 37.4 VOL% (42.0-52.0); Hemoglobin 11.8 GM/DL (14.0-18.0); Lymphocytes # 1.2 10*3/uL (1.4-4.0); Lymphocytes % 34.5 % (21.2-54.2); Mean Corpuscular HGB Conc 31.6 GM/DL (32-36); Mean Corpuscular Volume 94.7 FL (87-102); Mean Platelet Volume 12.1 FL (9.6-12.0); Monocytes % 10.6 % (1.7-12.7); Neutrophils % 53.2 % (38.7-73.9); Platelet Count 127 T/CUMM (130-400); Red Blood Count 3.95 MC/CUMM (3.8-5.5); Red Cell Distribution Width 14.1 % (9.3-17.3); White Blood Count 3.6 T/CUMM (4-12)
[2020-09-24 23:54] LABS: Albumin 3.4 G/DL (3.4-5.0); Bilirubin,Total 0.6 MG/DL (0.2-1.0); Calcium 8.3 MG/DL (8.5-10.1); Osmolality,Calculated 278.5 MOS/KG (273-304); Potassium 3.9 MMOL/L (3.5-5.1); Total Protein 7.2 G/DL (6.4-8.2)
[2020-09-25 00:40] LABS: INR 1.2; PT Patient Result 12.6 SECS (9.8-11.9)
[2020-09-25] MEDS ORDERED: DEXTROSE 50% 25 GM/50 ML VIAL IV PRN (02:04)
[2020-09-25] MEDS ORDERED: GLUCAGON 1 MG VIAL IM PRN (02:04)
[2020-09-25] MEDS ORDERED: BISACODYL 5 MG TABLET PO PRN (02:04)
[2020-09-25] MEDS ORDERED: MAGNESIUM SULF RIDER 2 GM in PREMIX 1 EACH IV PRN (02:04)
[2020-09-25] MEDS ORDERED: MAGNESIUM SULF RIDER 4 GM in PREMIX 1 EACH IV PRN (02:04)
[2020-09-25] MEDS ORDERED: DOCUSATE SODIUM 100 MG CAPSULE PO PRN (02:04)
[2020-09-25] MEDS ORDERED: ALUMINUM/MAGNES/SIMETH MAX STR 30 ML UDCUP PO PRN (02:04)
[2020-09-25] MEDS ORDERED: ONDANSETRON 4 MG/2 ML VIAL IV PRN (02:04)
[2020-09-25] MEDS ORDERED: CALCIUM CARBONATE CHEW 500 MG TABLET PO PRN (02:04)
[2020-09-25] MEDS ORDERED: ACETAMINOPHEN 325 MG TABLET PO PRN (02:04)
[2020-09-25] MEDS ORDERED: SIMETHICONE CHEW 125 MG TABLET PO PRN (02:04)
[2020-09-25] MEDS ORDERED: ZALEPLON 5 MG CAPSULE PO PRN (02:04)
[2020-09-25] MEDS ORDERED: IBUPROFEN 200 MG TABLET PO PRN (02:28)
[2020-09-25] MEDS ORDERED: COLCHICINE 0.6 MG CAPSULE PO PRN (02:30)
[2020-09-25 08:23] LABS: Basophils % 0.6 % (0.0-0.8); Eosinophils % 1.2 % (0.00-10.9); Hemoglobin 12.4 GM/DL (14.0-18.0); Lymphocytes # 1.3 10*3/uL (1.4-4.0); Lymphocytes % 39.3 % (21.2-54.2); Mean Corpuscular HGB Conc 31.8 GM/DL (32-36); Mean Corpuscular Volume 94.2 FL (87-102); Monocytes % 11.8 % (1.7-12.7); Neutrophils % 47.1 % (38.7-73.9); Platelet Count 136 T/CUMM (130-400); Red Blood Count 4.14 MC/CUMM (3.8-5.5); Red Cell Distribution Width 14.1 % (9.3-17.3); White Blood Count 3.2 T/CUMM (4-12)
[2020-09-25 08:49] LABS: Albumin 3.4 G/DL (3.4-5.0); Bilirubin,Total 0.6 MG/DL (0.2-1.0); Calcium 8.4 MG/DL (8.5-10.1); Osmolality,Calculated 278.5 MOS/KG (273-304); Potassium 3.4 MMOL/L (3.5-5.1)
[2020-09-25] MEDS: LOSARTAN 50 MG TABLET PO SCH ×2 (08:49→21:28)
[2020-09-25] MEDS: FUROSEMIDE 40 MG/4 ML VIAL IV SCH ×2 (08:49→16:17)
[2020-09-25] MEDS: POTASSIUM CHLORIDE 20 MEQ TABLET PO SCH (08:49)
[2020-09-25] MEDS: PANTOPRAZOLE 40 MG TABLET PO SCH (08:49)
[2020-09-25] MEDS: carvediloL 25 MG TABLET PO SCH ×2 (08:49→21:28)
[2020-09-25] MEDS: ASPIRIN EC 81 MG TABLET PO SCH (08:49)
[2020-09-25] MEDS ORDERED: POTASSIUM CHLORIDE 20 MEQ TABLET PO ONE (09:28)
[2020-09-25] MEDS: SPIRONOLACTONE 25 MG TABLET PO SCH (09:41)
[2020-09-25] MEDS ORDERED: ENOXAPARIN 40 MG/0.4 ML SYRINGE SUBCUT SCH (21:00)
[2020-09-25] MEDS ORDERED: ATORVASTATIN 80 MG TABLET PO SCH (21:00)
[2020-09-26 05:41] LABS: Basophils % 0.9 % (0.0-0.8); Eosinophils # 0.1 10*3/uL (0.0-0.87); Eosinophils % 1.9 % (0.00-10.9); Hematocrit 39.7 VOL% (42.0-52.0); Hemoglobin 12.6 GM/DL (14.0-18.0); Immature Granulocytes % 0.3 %; Immature Granulocytes Absolute 0.01 #; Lymphocytes # 1.5 10*3/uL (1.4-4.0); Lymphocytes % 45.8 % (21.2-54.2); Mean Corpuscular HGB Conc 31.7 GM/DL (32-36); Mean Corpuscular Volume 95.2 FL (87-102); Mean Platelet Volume 11.8 FL (9.6-12.0); Monocytes % 13.1 % (1.7-12.7); Platelet Count 133 T/CUMM (130-400); Red Blood Count 4.17 MC/CUMM (3.8-5.5); Red Cell Distribution Width 13.9 % (9.3-17.3); White Blood Count 3.2 T/CUMM (4-12)
[2020-09-26 05:46] LABS: Osmolality,Calculated 279.5 MOS/KG (273-304); Potassium 3.8 MMOL/L (3.5-5.1)
[2020-09-26 06:05] LABS: Band Neutrophils 3 % (0-10); Eosinophils 2 % (0-10); Hypochromasia 1+; Lymphocytes 45 % (20-55); Segmented Neutrophils 40 % (50-85); Total Cells Counted 100
[2020-09-26 06:06] LABS: Microcytosis 1+; Ovalocytes Few; Platelet Estimate Adequate
[2020-09-26] MEDS: FUROSEMIDE 40 MG/4 ML VIAL IV SCH (08:15)
[2020-09-26] MEDS: SPIRONOLACTONE 25 MG TABLET PO SCH (08:15)
[2020-09-26] MEDS: POTASSIUM CHLORIDE 20 MEQ TABLET PO SCH (08:15)
[2020-09-26] MEDS: ASPIRIN EC 81 MG TABLET PO SCH (08:15)
[2020-09-26] MEDS: LOSARTAN 50 MG TABLET PO SCH (08:15)
[2020-09-26] MEDS: PANTOPRAZOLE 40 MG TABLET PO SCH (08:20)
[2020-09-26] MEDS: carvediloL 25 MG TABLET PO SCH (08:21)
[2020-09-26 13:45] VITALS: BP 144/80
== END 2020-09-26 15:44 | disposition home or self-care (01) ==
LOC: N.EDINP 21:38 → N.ED 21:38 → N.TELES 09-25 03:02
PROVIDERS: ADMIT Internal Medicine; ATTEND Internal Medicine

== ENCOUNTER 2020-11-02 14:37 | Observation (INO) ==
[2020-11-02 16:41] LABS: Basophils % 0.5 % (0.0-0.8); Eosinophils # 0.1 10*3/uL (0.0-0.87); Eosinophils % 2.4 % (0.00-10.9); Hematocrit 39.2 VOL% (42.0-52.0); Hemoglobin 12.5 GM/DL (14.0-18.0); Immature Granulocytes % 0.3 %; Immature Granulocytes Absolute 0.01 #; Lymphocytes # 1.4 10*3/uL (1.4-4.0); Lymphocytes % 38.2 % (21.2-54.2); Mean Corpuscular HGB Conc 31.9 GM/DL (32-36); Mean Corpuscular Volume 94.2 FL (87-102); Mean Platelet Volume 12.8 FL (9.6-12.0); Monocytes % 9.9 % (1.7-12.7); Neutrophils % 48.7 % (38.7-73.9); Platelet Count 138 T/CUMM (130-400); Red Blood Count 4.16 MC/CUMM (3.8-5.5); Red Cell Distribution Width 14.2 % (9.3-17.3); White Blood Count 3.7 T/CUMM (4-12)
[2020-11-02 17:16] LABS: Albumin 3.8 G/DL (3.4-5.0); Calcium 8.9 MG/DL (8.5-10.1); Osmolality,Calculated 276.8 MOS/KG (273-304); Potassium 3.7 MMOL/L (3.5-5.1); Total Protein 8.2 G/DL (6.4-8.2)
[2020-11-02] MEDS ORDERED: FUROSEMIDE 40 MG/4 ML VIAL IV STA (17:28)
[2020-11-02] MEDS ORDERED: ACETAMINOPHEN 325 MG TABLET PO PRN (18:18)
[2020-11-02] MEDS ORDERED: ONDANSETRON 4 MG/2 ML VIAL IV PRN (18:18)
[2020-11-02] MEDS ORDERED: MAGNESIUM SULF RIDER 2 GM/50 ML PREMIX IV PRN (18:18)
[2020-11-02] MEDS ORDERED: DEXTROSE 50% 25 GM/50 ML VIAL IV PRN (18:18)
[2020-11-02] MEDS ORDERED: MAGNESIUM SULF RIDER 4 GM/100 ML PREMIX IV PRN (18:18)
[2020-11-02] MEDS ORDERED: ZALEPLON 5 MG CAPSULE PO PRN (18:18)
[2020-11-02] MEDS ORDERED: DOCUSATE SODIUM 100 MG CAPSULE PO PRN (18:18)
[2020-11-02] MEDS ORDERED: GLUCAGON 1 MG VIAL IM PRN (18:18)
[2020-11-02] MEDS: ENOXAPARIN 40 MG/0.4 ML SYRINGE SUBCUT SCH (21:01)
[2020-11-02 21:44] LABS: Bilirubin,Urine Negative (Negative); Blood, Urine Small mg/dL (Negative); Glucose,Urine (UA) Negative (Negative); Ketones,Urine Negative (Negative); Mucus,Urine Occasional /LPF (Occasional); Nitrite,Urine Negative (Negative); Protein,Urine Negative; Urine Appearance CLEAR (Clear); Urine Color Straw (Yellow); Urine Specific Gravity 1.005 (1.001-1.035); Urine Urobilinogen < 2.0 EU/DL (0.2-1.0)
[2020-11-03 05:12] LABS: Basophils % 0.9 % (0.0-0.8); Eosinophils # 0.1 10*3/uL (0.0-0.87); Eosinophils % 2.9 % (0.00-10.9); Hematocrit 39.5 VOL% (42.0-52.0); Hemoglobin 12.6 GM/DL (14.0-18.0); Lymphocytes % 56.4 % (21.2-54.2); Mean Corpuscular HGB Conc 31.9 GM/DL (32-36); Mean Corpuscular Volume 93.6 FL (87-102); Mean Platelet Volume 13.2 FL (9.6-12.0); Monocytes % 7.2 % (1.7-12.7); Neutrophils % 32.6 % (38.7-73.9); Platelet Count 132 T/CUMM (130-400); Red Blood Count 4.22 MC/CUMM (3.8-5.5); Red Cell Distribution Width 14.2 % (9.3-17.3); White Blood Count 3.5 T/CUMM (4-12)
[2020-11-03 05:27] LABS: Albumin 3.6 G/DL (3.4-5.0); Bilirubin,Total 1.4 MG/DL (0.2-1.0); Calcium 8.6 MG/DL (8.5-10.1); Osmolality,Calculated 274.8 MOS/KG (273-304); Potassium 3.5 MMOL/L (3.5-5.1); Total Protein 7.8 G/DL (6.4-8.2)
[2020-11-03 05:34] LABS: Atypical Lymphocytes Few; Eosinophils 4 % (0-10); Hypochromasia 1+; Lymphocytes 65 % (20-55); Microcytosis Slight; Platelet Estimate Adequate; Segmented Neutrophils 24 % (50-85); Total Cells Counted 100
[2020-11-03] MEDS: PANTOPRAZOLE 40 MG TABLET PO SCH (09:49)
[2020-11-03] MEDS: FUROSEMIDE 40 MG/4 ML VIAL IV SCH ×2 (09:49→16:55)
[2020-11-03] MEDS ORDERED: SPIRONOLACTONE 25 MG TABLET PO SCH (10:00)
[2020-11-03] MEDS ORDERED: LOSARTAN 25 MG TABLET PO SCH (10:00)
[2020-11-03] MEDS: ASPIRIN EC 81 MG TABLET PO SCH (10:31)
[2020-11-03] MEDS: SACUBITRIL/VALSARTAN 49-51 MG TABLET PO SCH ×2 (10:31→20:22)
[2020-11-03] MEDS: carvediloL 3.125 MG TABLET PO SCH ×2 (10:31→20:22)
[2020-11-03] MEDS: SPIRONOLACTONE 25 MG TABLET PO SCH (10:32)
[2020-11-03] MEDS: ENOXAPARIN 40 MG/0.4 ML SYRINGE SUBCUT SCH (20:23)
[2020-11-03] MEDS ORDERED: ATORVASTATIN 80 MG TABLET PO SCH (21:00)
[2020-11-04 04:53] LABS: Basophils % 0.5 % (0.0-0.8); Eosinophils # 0.1 10*3/uL (0.0-0.87); Eosinophils % 1.8 % (0.00-10.9); Hematocrit 40.2 VOL% (42.0-52.0); Hemoglobin 12.8 GM/DL (14.0-18.0); Immature Granulocytes % 0.3 %; Immature Granulocytes Absolute 0.01 #; Lymphocytes % 52.7 % (21.2-54.2); Mean Corpuscular HGB Conc 31.8 GM/DL (32-36); Mean Platelet Volume 12.3 FL (9.6-12.0); Monocytes % 7.5 % (1.7-12.7); Neutrophils % 37.2 % (38.7-73.9); Platelet Count 149 T/CUMM (130-400); Red Blood Count 4.23 MC/CUMM (3.8-5.5); Red Cell Distribution Width 14.1 % (9.3-17.3); White Blood Count 3.9 T/CUMM (4-12)
[2020-11-04 05:12] LABS: Calcium 8.5 MG/DL (8.5-10.1); Potassium 3.6 MMOL/L (3.5-5.1)
[2020-11-04 05:16] LABS: Risk Ratio 10.17; VLDL CHOLESTEROL 22.6 MG/DL
[2020-11-04 05:18] LABS: Atypical Lymphocytes Few; Eosinophils 1 % (0-10); Hypochromasia 1+; Lymphocytes 43 % (20-55); Microcytosis 1+; Platelet Estimate Adequate; Segmented Neutrophils 48 % (50-85); Total Cells Counted 100
[2020-11-04] MEDS: FUROSEMIDE 40 MG/4 ML VIAL IV SCH (09:09)
[2020-11-04] MEDS: carvediloL 3.125 MG TABLET PO SCH (09:10)
[2020-11-04] MEDS: SPIRONOLACTONE 25 MG TABLET PO SCH (09:10)
[2020-11-04] MEDS: PANTOPRAZOLE 40 MG TABLET PO SCH (09:10)
[2020-11-04] MEDS: ASPIRIN EC 81 MG TABLET PO SCH (09:10)
[2020-11-04] MEDS: SACUBITRIL/VALSARTAN 49-51 MG TABLET PO SCH (09:10)
[2020-11-04 11:44] VITALS: BP 109/55
== END 2020-11-04 14:21 | disposition home or self-care (01) ==
LOC: N.EDINP 14:37 → N.ED 14:37 → N.EDINP 20:55 → N.TELEN 21:07 → UNDODISOB 11-04 10:31
PROVIDERS: ADMIT Internal Medicine; ATTEND Internal Medicine

== ENCOUNTER 2020-12-19 09:56 | Observation (INO) ==
[2020-12-19 11:23] LABS: Basophils % 0.2 % (0.0-0.8); Eosinophils # 0.1 10*3/uL (0.0-0.87); Eosinophils % 1.1 % (0.00-10.9); Hematocrit 32.3 VOL% (42.0-52.0); Hemoglobin 10.4 GM/DL (14.0-18.0); Immature Granulocytes % 0.4 %; Immature Granulocytes Absolute 0.02 #; Lymphocytes # 1.4 10*3/uL (1.4-4.0); Lymphocytes % 30.1 % (21.2-54.2); Mean Corpuscular HGB Conc 32.2 GM/DL (32-36); Mean Corpuscular Volume 94.2 FL (87-102); Mean Platelet Volume 11.9 FL (9.6-12.0); Neutrophils % 62.2 % (38.7-73.9); Platelet Count 141 T/CUMM (130-400); Red Blood Count 3.43 MC/CUMM (3.8-5.5); Red Cell Distribution Width 15.6 % (9.3-17.3); White Blood Count 4.7 T/CUMM (4-12)
[2020-12-19 11:31] LABS: INR 1.3; PT Patient Result 14.8 SECS (10.5-12.0)
[2020-12-19 11:40] LABS: Albumin 3.2 G/DL (3.4-5.0); Bilirubin,Total 1.1 MG/DL (0.2-1.0); Calcium 8.6 MG/DL (8.5-10.1); Osmolality,Calculated 281.4 MOS/KG (273-304); Potassium 3.6 MMOL/L (3.5-5.1); Total Protein 6.4 G/DL (6.4-8.2)
[2020-12-19] MEDS ORDERED: FUROSEMIDE 100 MG/10 ML VIAL IV STA (12:11)
[2020-12-19] MEDS ORDERED: DEXTROSE 50% 25 GM/50 ML VIAL IV PRN (12:47)
[2020-12-19] MEDS ORDERED: ONDANSETRON 4 MG/2 ML VIAL IV PRN (12:47)
[2020-12-19] MEDS ORDERED: ACETAMINOPHEN 325 MG TABLET PO PRN (12:47)
[2020-12-19] MEDS ORDERED: GLUCAGON 1 MG VIAL IM PRN (12:47)
[2020-12-19] MEDS ORDERED: LACTULOSE 20 GM/30 ML UDCUP PO PRN (12:47)
[2020-12-19] MEDS ORDERED: FUROSEMIDE 40 MG/4 ML VIAL IV STA (12:49)
[2020-12-19 15:12] LABS: Bacteria,Urine Occasional /HPF (Few); Bilirubin,Urine Negative (Negative); Blood, Urine Negative (Negative); Glucose,Urine (UA) Negative (Negative); Ketones,Urine Negative (Negative); Mucus,Urine Occasional /LPF (Occasional); Nitrite,Urine Negative (Negative); Protein,Urine Negative; RBC,Urine 1 /HPF (0-4); Squamous Epithelial Cell,Urine Occasional /HPF (0-10); Urine Appearance CLEAR (Clear); Urine Color Yellow (Yellow); Urine Specific Gravity 1.013 (1.001-1.035)
[2020-12-19] MEDS: ENOXAPARIN 40 MG/0.4 ML SYRINGE SUBCUT SCH (16:31)
[2020-12-19] MEDS: INSULIN LISPRO 100 UNIT/ML SUBCUT SCH ×2 (16:33→20:44)
[2020-12-19] MEDS: SACUBITRIL/VALSARTAN 49-51 MG TABLET PO SCH (20:44)
[2020-12-19] MEDS: DOCUSATE SODIUM 100 MG CAPSULE PO SCH (20:44)
[2020-12-19] MEDS: carvediloL 3.125 MG TABLET PO SCH (20:44)
[2020-12-19] MEDS: ATORVASTATIN 80 MG TABLET PO SCH (20:44)
[2020-12-20 06:29] LABS: Basophils % 0.2 % (0.0-0.8); Eosinophils # 0.1 10*3/uL (0.0-0.87); Eosinophils % 1.5 % (0.00-10.9); Hematocrit 33.1 VOL% (42.0-52.0); Hemoglobin 10.9 GM/DL (14.0-18.0); Immature Granulocytes % 0.2 %; Immature Granulocytes Absolute 0.01 #; Lymphocytes % 38.5 % (21.2-54.2); Mean Corpuscular HGB Conc 32.9 GM/DL (32-36); Mean Corpuscular Volume 93.5 FL (87-102); Mean Platelet Volume 12.4 FL (9.6-12.0); Monocytes % 7.3 % (1.7-12.7); Neutrophils % 52.3 % (38.7-73.9); Platelet Count 139 T/CUMM (130-400); Red Blood Count 3.54 MC/CUMM (3.8-5.5); Red Cell Distribution Width 15.5 % (9.3-17.3); White Blood Count 5.2 T/CUMM (4-12)
[2020-12-20 06:42] LABS: Calcium 8.4 MG/DL (8.5-10.1); Osmolality,Calculated 284.4 MOS/KG (273-304); Potassium 3.7 MMOL/L (3.5-5.1); Risk Ratio 5.85; Thyroid Stimulating Hormone 2.12 uIU/ml (0.358-3.74); VLDL CHOLESTEROL 12.6 MG/DL
[2020-12-20] MEDS: INSULIN LISPRO 100 UNIT/ML SUBCUT SCH ×4 (08:18→20:46)
[2020-12-20] MEDS: DOCUSATE SODIUM 100 MG CAPSULE PO SCH ×2 (09:39→20:44)
[2020-12-20] MEDS: CLOPIDOGREL 75 MG TABLET PO SCH (09:39)
[2020-12-20] MEDS: carvediloL 3.125 MG TABLET PO SCH ×2 (09:39→20:44)
[2020-12-20] MEDS: SPIRONOLACTONE 25 MG TABLET PO SCH (09:39)
[2020-12-20] MEDS: FUROSEMIDE 40 MG/4 ML VIAL IV SCH ×2 (09:40→15:42)
[2020-12-20] MEDS: ASPIRIN EC 81 MG TABLET PO SCH (09:40)
[2020-12-20] MEDS: PANTOPRAZOLE 40 MG TABLET PO SCH (09:40)
[2020-12-20] MEDS: SACUBITRIL/VALSARTAN 49-51 MG TABLET PO SCH ×2 (09:40→20:44)
[2020-12-20] MEDS: ENOXAPARIN 40 MG/0.4 ML SYRINGE SUBCUT SCH (15:41)
[2020-12-20] MEDS: ATORVASTATIN 80 MG TABLET PO SCH (20:45)
[2020-12-21 04:56] LABS: Basophils % 0.2 % (0.0-0.8); Eosinophils # 0.1 10*3/uL (0.0-0.87); Eosinophils % 1.7 % (0.00-10.9); Hematocrit 31.2 VOL% (42.0-52.0); Hemoglobin 10.1 GM/DL (14.0-18.0); Immature Granulocytes % 0.4 %; Immature Granulocytes Absolute 0.02 #; Lymphocytes # 1.6 10*3/uL (1.4-4.0); Lymphocytes % 32.2 % (21.2-54.2); Mean Corpuscular HGB Conc 32.4 GM/DL (32-36); Mean Corpuscular Volume 94.3 FL (87-102); Mean Platelet Volume 12.7 FL (9.6-12.0); Monocytes % 8.1 % (1.7-12.7); Neutrophils % 57.4 % (38.7-73.9); Platelet Count 134 T/CUMM (130-400); Red Blood Count 3.31 MC/CUMM (3.8-5.5); Red Cell Distribution Width 15.7 % (9.3-17.3); White Blood Count 4.8 T/CUMM (4-12)
[2020-12-21 05:02] LABS: Calcium 8.8 MG/DL (8.5-10.1); Osmolality,Calculated 279.7 MOS/KG (273-304); Potassium 3.3 MMOL/L (3.5-5.1)
[2020-12-21] MEDS ORDERED: POTASSIUM CHLORIDE 20 MEQ TABLET PO ONE (07:41)
[2020-12-21] MEDS: carvediloL 3.125 MG TABLET PO SCH ×2 (10:08→21:26)
[2020-12-21] MEDS: DOCUSATE SODIUM 100 MG CAPSULE PO SCH ×2 (10:08→21:27)
[2020-12-21] MEDS: CLOPIDOGREL 75 MG TABLET PO SCH (10:08)
[2020-12-21] MEDS: SPIRONOLACTONE 25 MG TABLET PO SCH (10:09)
[2020-12-21] MEDS: PANTOPRAZOLE 40 MG TABLET PO SCH (10:09)
[2020-12-21] MEDS: FUROSEMIDE 40 MG/4 ML VIAL IV SCH ×2 (10:09→16:00)
[2020-12-21] MEDS: SACUBITRIL/VALSARTAN 49-51 MG TABLET PO SCH ×2 (10:12→21:26)
[2020-12-21] MEDS: ASPIRIN EC 81 MG TABLET PO SCH (10:12)
[2020-12-21] MEDS: INSULIN LISPRO 100 UNIT/ML SUBCUT SCH ×4 (11:07→21:28)
[2020-12-21] MEDS: ENOXAPARIN 40 MG/0.4 ML SYRINGE SUBCUT SCH (13:13)
[2020-12-21] MEDS: ATORVASTATIN 80 MG TABLET PO SCH (21:26)
[2020-12-22 06:48] LABS: Basophils % 0.2 % (0.0-0.8); Eosinophils # 0.1 10*3/uL (0.0-0.87); Eosinophils % 2.4 % (0.00-10.9); Hematocrit 30.7 VOL% (42.0-52.0); Hemoglobin 10.1 GM/DL (14.0-18.0); Immature Granulocytes % 0.2 %; Immature Granulocytes Absolute 0.01 #; Lymphocytes # 1.4 10*3/uL (1.4-4.0); Lymphocytes % 32.7 % (21.2-54.2); Mean Corpuscular HGB Conc 32.9 GM/DL (32-36); Mean Corpuscular Volume 93.6 FL (87-102); Mean Platelet Volume 11.9 FL (9.6-12.0); Monocytes % 8.7 % (1.7-12.7); Neutrophils % 55.8 % (38.7-73.9); Platelet Count 141 T/CUMM (130-400); Red Blood Count 3.28 MC/CUMM (3.8-5.5); Red Cell Distribution Width 15.8 % (9.3-17.3); White Blood Count 4.2 T/CUMM (4-12)
[2020-12-22 07:03] LABS: Calcium 8.5 MG/DL (8.5-10.1); Osmolality,Calculated 280.4 MOS/KG (273-304); Potassium 3.5 MMOL/L (3.5-5.1)
[2020-12-22] MEDS: ASPIRIN EC 81 MG TABLET PO SCH (09:17)
[2020-12-22] MEDS: PANTOPRAZOLE 40 MG TABLET PO SCH (09:17)
[2020-12-22] MEDS: carvediloL 3.125 MG TABLET PO SCH (09:17)
[2020-12-22] MEDS: DOCUSATE SODIUM 100 MG CAPSULE PO SCH (09:17)
[2020-12-22] MEDS: SACUBITRIL/VALSARTAN 49-51 MG TABLET PO SCH (09:18)
[2020-12-22] MEDS: CLOPIDOGREL 75 MG TABLET PO SCH (09:18)
[2020-12-22] MEDS: FUROSEMIDE 40 MG/4 ML VIAL IV SCH (09:18)
[2020-12-22] MEDS: SPIRONOLACTONE 25 MG TABLET PO SCH (09:18)
[2020-12-22] MEDS: INSULIN LISPRO 100 UNIT/ML SUBCUT SCH ×2 (10:32→11:51)
[2020-12-22 11:49] VITALS: BP 135/64
[2020-12-22] MEDS: ENOXAPARIN 40 MG/0.4 ML SYRINGE SUBCUT SCH (12:20)
== END 2020-12-22 13:50 | disposition home or self-care (01) ==
LOC: N.ED 09:56 → N.EDINP 09:56 → SUATTDRO 12:46 → N.TELEN 16:00
PROVIDERS: ADMIT Internal Medicine; ATTEND Internal Medicine Geriatric Medicine

== ENCOUNTER 2021-01-03 10:49 | Inpatient (IN) ==
[2021-01-03] MEDS ORDERED: FUROSEMIDE 40 MG/4 ML VIAL IV STA (11:16)
[2021-01-03 11:26] LABS: Basophils % 0.4 % (0.0-0.8); Eosinophils % 0.4 % (0.00-10.9); Hematocrit 36.9 VOL% (42.0-52.0); Hemoglobin 11.5 GM/DL (14.0-18.0); Immature Granulocytes % 0.4 %; Immature Granulocytes Absolute 0.02 #; Lymphocytes # 1.7 10*3/uL (1.4-4.0); Lymphocytes % 31.1 % (21.2-54.2); Mean Corpuscular HGB Conc 31.2 GM/DL (32-36); Mean Corpuscular Volume 96.3 FL (87-102); Mean Platelet Volume 11.9 FL (9.6-12.0); Monocytes % 7.5 % (1.7-12.7); Neutrophils % 60.2 % (38.7-73.9); Platelet Count 218 T/CUMM (130-400); Red Blood Count 3.83 MC/CUMM (3.8-5.5); Red Cell Distribution Width 16.8 % (9.3-17.3); White Blood Count 5.4 T/CUMM (4-12)
[2021-01-03 11:38] LABS: INR 1.6; PT Patient Result 17.7 SECS (10.5-12.0); Partial Thromboplastin Time 29.1 SECS (23.9-33.8)
[2021-01-03 11:50] LABS: Albumin 3.5 G/DL (3.4-5.0); Bilirubin,Total 1.7 MG/DL (0.2-1.0); Calcium 8.7 MG/DL (8.5-10.1); Osmolality,Calculated 284.4 MOS/KG (273-304); Potassium 3.8 MMOL/L (3.5-5.1); Total Protein 6.9 G/DL (6.4-8.2)
[2021-01-03] MEDS ORDERED: hydrALAZINE 20 MG/1 ML VIAL IV PRN (13:39)
[2021-01-03] MEDS ORDERED: GLUCAGON 1 MG VIAL IM PRN ×2 (13:39)
[2021-01-03] MEDS ORDERED: DEXTROSE 50% 25 GM/50 ML VIAL IV PRN ×2 (13:39)
[2021-01-03] MEDS ORDERED: MAGNESIUM SULF RIDER 2 GM/50 ML PREMIX IV PRN (13:42)
[2021-01-03] MEDS ORDERED: MAGNESIUM SULF RIDER 4 GM/100 ML PREMIX IV PRN (13:42)
[2021-01-03] MEDS: INSULIN LISPRO 100 UNIT/ML SUBCUT SCH ×2 (17:13→20:15)
[2021-01-03] MEDS: FUROSEMIDE 40 MG/4 ML VIAL IV SCH (17:13)
[2021-01-03] MEDS: ENOXAPARIN 40 MG/0.4 ML SYRINGE SUBCUT SCH (17:14)
[2021-01-03] MEDS: ATORVASTATIN 80 MG TABLET PO SCH (20:15)
[2021-01-03] MEDS: SACUBITRIL/VALSARTAN 49-51 MG TABLET PO SCH (20:15)
[2021-01-03] MEDS: carvediloL 3.125 MG TABLET PO SCH (20:15)
[2021-01-03] MEDS: ONDANSETRON 4 MG/2 ML VIAL IV PRN (20:27)
[2021-01-04 05:46] LABS: Basophils % 0.2 % (0.0-0.8); Eosinophils % 0.4 % (0.00-10.9); Hematocrit 34.3 VOL% (42.0-52.0); Hemoglobin 11.2 GM/DL (14.0-18.0); Immature Granulocytes % 0.4 %; Immature Granulocytes Absolute 0.02 #; Lymphocytes # 1.7 10*3/uL (1.4-4.0); Mean Corpuscular HGB Conc 32.7 GM/DL (32-36); Mean Platelet Volume 13.2 FL (9.6-12.0); Monocytes % 5.7 % (1.7-12.7); Neutrophils % 62.3 % (38.7-73.9); Platelet Count 164 T/CUMM (130-400); Red Blood Count 3.61 MC/CUMM (3.8-5.5); Red Cell Distribution Width 16.9 % (9.3-17.3); White Blood Count 5.5 T/CUMM (4-12)
[2021-01-04 06:08] LABS: Hypochromasia 1+; Microcytosis 1+; Platelet Estimate Adequate
[2021-01-04 06:11] LABS: Calcium 8.6 MG/DL (8.5-10.1); Osmolality,Calculated 286.3 MOS/KG (273-304); Potassium 3.9 MMOL/L (3.5-5.1); Thyroid Stimulating Hormone 1.41 uIU/ml (0.358-3.74)
[2021-01-04] MEDS: SACUBITRIL/VALSARTAN 49-51 MG TABLET PO SCH ×2 (09:12→21:10)
[2021-01-04] MEDS: carvediloL 3.125 MG TABLET PO SCH ×2 (09:12→21:09)
[2021-01-04] MEDS: SPIRONOLACTONE 25 MG TABLET PO SCH (09:12)
[2021-01-04] MEDS: CLOPIDOGREL 75 MG TABLET PO SCH (09:12)
[2021-01-04] MEDS: amLODIPine 2.5 MG TABLET PO SCH (09:12)
[2021-01-04] MEDS: ASPIRIN EC 81 MG TABLET PO SCH (09:12)
[2021-01-04] MEDS: PANTOPRAZOLE 40 MG TABLET PO SCH (09:12)
[2021-01-04] MEDS: FUROSEMIDE 40 MG/4 ML VIAL IV SCH ×2 (09:13→16:28)
[2021-01-04] MEDS: metFORMIN 500 MG TABLET PO SCH ×2 (09:13)
[2021-01-04] MEDS: INSULIN LISPRO 100 UNIT/ML SUBCUT SCH ×5 (09:18→21:13)
[2021-01-04] MEDS: ENOXAPARIN 40 MG/0.4 ML SYRINGE SUBCUT SCH (14:11)
[2021-01-04] MEDS: ATORVASTATIN 80 MG TABLET PO SCH (21:10)
[2021-01-04] MEDS: ONDANSETRON 4 MG/2 ML VIAL IV PRN (23:55)
[2021-01-05] MEDS: INSULIN LISPRO 100 UNIT/ML SUBCUT SCH ×3 (10:06→16:47)
[2021-01-05] MEDS: ASPIRIN EC 81 MG TABLET PO SCH (10:16)
[2021-01-05] MEDS: metFORMIN 500 MG TABLET PO SCH (10:16)
[2021-01-05] MEDS: carvediloL 3.125 MG TABLET PO SCH (10:17)
[2021-01-05] MEDS: CLOPIDOGREL 75 MG TABLET PO SCH (10:17)
[2021-01-05] MEDS: PANTOPRAZOLE 40 MG TABLET PO SCH (10:17)
[2021-01-05] MEDS: SPIRONOLACTONE 25 MG TABLET PO SCH (10:18)
[2021-01-05] MEDS: SACUBITRIL/VALSARTAN 49-51 MG TABLET PO SCH (10:27)
[2021-01-05] MEDS: amLODIPine 2.5 MG TABLET PO SCH (10:27)
[2021-01-05] MEDS: FUROSEMIDE 40 MG/4 ML VIAL IV SCH ×2 (10:27→15:30)
[2021-01-05] MEDS: ENOXAPARIN 40 MG/0.4 ML SYRINGE SUBCUT SCH (15:54)
[2021-01-05 16:27] VITALS: BP 101/50
== END 2021-01-05 18:05 | disposition home health service (06) | DRG 293 ==
LOC: N.ED 10:49 → N.EDINP 14:54 → SUATTDRO 14:54 → N.TELES 15:26
PROVIDERS: ADMIT Internal Medicine; ATTEND Internal Medicine

== ENCOUNTER 2021-01-10 03:37 | Observation (INO) ==
[2021-01-10] MEDS ORDERED: ONDANSETRON 4 MG/2 ML VIAL IV PRN (11:56)
[2021-01-10] MEDS ORDERED: LACTULOSE 20 GM/30 ML UDCUP PO PRN (11:56)
[2021-01-10] MEDS ORDERED: DEXTROSE 50% 25 GM/50 ML VIAL IV PRN (11:56)
[2021-01-10] MEDS ORDERED: DOCUSATE SODIUM 100 MG CAPSULE PO PRN (11:56)
[2021-01-10] MEDS ORDERED: ACETAMINOPHEN 325 MG TABLET PO PRN (11:56)
[2021-01-10] MEDS ORDERED: GLUCAGON 1 MG VIAL IM PRN (11:56)
[2021-01-10] MEDS ORDERED: NITROGLYCERIN SL 0.4 MG TABLET SL PRN (12:02)
[2021-01-10 12:18] LABS: Eosinophils % 0.2 % (0.00-10.9); Hematocrit 36.4 VOL% (42.0-52.0); Hemoglobin 11.3 GM/DL (14.0-18.0); Immature Granulocytes % 0.4 %; Immature Granulocytes Absolute 0.02 #; Lymphocytes # 1.6 10*3/uL (1.4-4.0); Lymphocytes % 29.9 % (21.2-54.2); Mean Corpuscular Volume 97.3 FL (87-102); Monocytes % 9.5 % (1.7-12.7); Platelet Count 147 T/CUMM (130-400); Red Blood Count 3.74 MC/CUMM (3.8-5.5); Red Cell Distribution Width 17.8 % (9.3-17.3); White Blood Count 5.3 T/CUMM (4-12)
[2021-01-10 12:33] LABS: Calcium 8.6 MG/DL (8.5-10.1); Osmolality,Calculated 294.3 MOS/KG (273-304); Potassium 4.2 MMOL/L (3.5-5.1)
[2021-01-10] MEDS: CLOPIDOGREL 75 MG TABLET PO SCH (14:01)
[2021-01-10] MEDS: ENOXAPARIN 40 MG/0.4 ML SYRINGE SUBCUT SCH (14:01)
[2021-01-10] MEDS: ISOSORBIDE MONONITRATE 30 MG TABLET PO SCH (14:01)
[2021-01-10] MEDS: carvediloL 3.125 MG TABLET PO SCH ×2 (14:01→20:40)
[2021-01-10] MEDS: ASPIRIN EC 81 MG TABLET PO SCH (14:01)
[2021-01-10] MEDS: FUROSEMIDE 40 MG/4 ML VIAL IV SCH (14:02)
[2021-01-10 14:59] LABS: INR 1.6; PT Patient Result 17.5 SECS (10.5-12.0)
[2021-01-10] MEDS: ATORVASTATIN 80 MG TABLET PO SCH (20:40)
[2021-01-10] MEDS ORDERED: SACUBITRIL/VALSARTAN 49-51 MG TABLET PO SCH (21:00)
[2021-01-11] MEDS: ASPIRIN EC 81 MG TABLET PO SCH (10:16)
[2021-01-11] MEDS: CLOPIDOGREL 75 MG TABLET PO SCH (10:16)
[2021-01-11] MEDS: ISOSORBIDE MONONITRATE 30 MG TABLET PO SCH (10:16)
[2021-01-11] MEDS: FUROSEMIDE 40 MG/4 ML VIAL IV SCH ×2 (10:17→17:17)
[2021-01-11] MEDS: SPIRONOLACTONE 25 MG TABLET PO SCH (10:17)
[2021-01-11] MEDS: PANTOPRAZOLE 40 MG TABLET PO SCH (10:17)
[2021-01-11] MEDS: carvediloL 3.125 MG TABLET PO SCH ×2 (10:19→21:39)
[2021-01-11 12:01] LABS: Calcium 8.2 MG/DL (8.5-10.1); Potassium 4.1 MMOL/L (3.5-5.1)
[2021-01-11] MEDS: ENOXAPARIN 40 MG/0.4 ML SYRINGE SUBCUT SCH (17:19)
[2021-01-11] MEDS: ATORVASTATIN 80 MG TABLET PO SCH (21:39)
[2021-01-12 05:49] LABS: Basophils % 0.2 % (0.0-0.8); Eosinophils # 0.1 10*3/uL (0.0-0.87); Eosinophils % 1.1 % (0.00-10.9); Hematocrit 36.7 VOL% (42.0-52.0); Hemoglobin 11.5 GM/DL (14.0-18.0); Immature Granulocytes % 0.4 %; Immature Granulocytes Absolute 0.02 #; Lymphocytes # 1.5 10*3/uL (1.4-4.0); Lymphocytes % 26.8 % (21.2-54.2); Mean Corpuscular HGB Conc 31.3 GM/DL (32-36); Mean Corpuscular Volume 98.1 FL (87-102); Mean Platelet Volume 13.5 FL (9.6-12.0); Monocytes % 10.7 % (1.7-12.7); NRBC # 0.06 10*3/uL; Neutrophils % 60.8 % (38.7-73.9); Platelet Count 130 T/CUMM (130-400); Red Blood Count 3.74 MC/CUMM (3.8-5.5); Red Cell Distribution Width 17.7 % (9.3-17.3); White Blood Count 5.4 T/CUMM (4-12)
[2021-01-12 06:09] LABS: Calcium 8.7 MG/DL (8.5-10.1); Potassium 4.7 MMOL/L (3.5-5.1)
[2021-01-12 06:11] LABS: Hypochromasia Slight; Microcytosis 1+; Ovalocytes Slight
[2021-01-12 06:12] LABS: Acanthocytes Few; Platelet Estimate Adequate
[2021-01-12] MEDS: FUROSEMIDE 40 MG/4 ML VIAL IV SCH ×2 (10:04→15:34)
[2021-01-12] MEDS: PANTOPRAZOLE 40 MG TABLET PO SCH (10:05)
[2021-01-12] MEDS: ASPIRIN EC 81 MG TABLET PO SCH (10:05)
[2021-01-12] MEDS: CLOPIDOGREL 75 MG TABLET PO SCH (10:05)
[2021-01-12] MEDS: ISOSORBIDE MONONITRATE 30 MG TABLET PO SCH (10:05)
[2021-01-12] MEDS: carvediloL 3.125 MG TABLET PO SCH ×2 (10:05→20:18)
[2021-01-12] MEDS: SPIRONOLACTONE 25 MG TABLET PO SCH (10:05)
[2021-01-12] MEDS: ENOXAPARIN 40 MG/0.4 ML SYRINGE SUBCUT SCH (12:22)
[2021-01-12] MEDS: ATORVASTATIN 80 MG TABLET PO SCH (20:18)
[2021-01-12] MEDS ORDERED: TEMAZEPAM 7.5 MG CAPSULE PO PRN (22:44)
[2021-01-13 06:01] LABS: Calcium 8.3 MG/DL (8.5-10.1); Osmolality,Calculated 286.8 MOS/KG (273-304); Potassium 4.2 MMOL/L (3.5-5.1)
[2021-01-13 07:51] LABS: Basophils % 0.2 % (0.0-0.8); Eosinophils # 0.1 10*3/uL (0.0-0.87); Eosinophils % 1.2 % (0.00-10.9); Hematocrit 36.5 VOL% (42.0-52.0); Hemoglobin 11.7 GM/DL (14.0-18.0); Immature Granulocytes % 0.4 %; Immature Granulocytes Absolute 0.02 #; Lymphocytes # 1.4 10*3/uL (1.4-4.0); Lymphocytes % 28.5 % (21.2-54.2); Mean Corpuscular HGB Conc 32.1 GM/DL (32-36); Mean Corpuscular Volume 95.8 FL (87-102); Mean Platelet Volume 12.9 FL (9.6-12.0); Monocytes % 10.7 % (1.7-12.7); NRBC # 0.02 10*3/uL; Platelet Count 122 T/CUMM (130-400); Red Blood Count 3.81 MC/CUMM (3.8-5.5); Red Cell Distribution Width 17.7 % (9.3-17.3); White Blood Count 5.1 T/CUMM (4-12)
[2021-01-13] MEDS: FUROSEMIDE 40 MG/4 ML VIAL IV SCH (08:26)
[2021-01-13] MEDS: PANTOPRAZOLE 40 MG TABLET PO SCH (08:27)
[2021-01-13] MEDS: SPIRONOLACTONE 25 MG TABLET PO SCH (08:27)
[2021-01-13] MEDS: ASPIRIN EC 81 MG TABLET PO SCH (08:27)
[2021-01-13] MEDS: carvediloL 3.125 MG TABLET PO SCH (08:27)
[2021-01-13] MEDS: CLOPIDOGREL 75 MG TABLET PO SCH (08:27)
[2021-01-13] MEDS: ISOSORBIDE MONONITRATE 30 MG TABLET PO SCH (08:27)
[2021-01-13 11:06] VITALS: BP 122/64
[2021-01-13] MEDS: ENOXAPARIN 40 MG/0.4 ML SYRINGE SUBCUT SCH (13:47)
== END 2021-01-13 15:48 | disposition home health service (06) ==
LOC: N.TELEN → SUATTDRO 06:41 → N.TELEN 01-12 08:43
PROVIDERS: ADMIT Internal Medicine; ATTEND Hospitalist